=== PATIENT | female | born 1975 | race Two or more races ===

== ENCOUNTER 2018-03-31 17:31 | Emergency (ER) | payer OTHER ==
[~2018-03-31] VITALS: Ht 180.3 cm; Wt 64.0 kg
[2018-03-31 17:36] VITALS: BP 151/95
== END 2018-03-31 19:28 | disposition home or self-care (01) ==
LOC: ED 18:10
DX: B02.9 Zoster without complications (principal); Z85.3 Personal history of malignant neoplasm of breast
CPT/HCPCS: 99283